=== PATIENT | male | born 1975 | race Caucasian/White ===

== ENCOUNTER 2023-05-01 06:27 | Outpatient (CLI) | payer OTHER, SELFPAY ==
--- NOTE | 2023-05-01 07:32 | W.ANESCHARGE ---
Anesthesia Charges Start Date/Time Anesthesia Start Date: 05/01/23 Anesthesia Start Time: 07:12 Stop Date/Time Anesthesia Stop Date: 05/01/23 Anesthesia Stop Time: 07:29
--- NOTE | 2023-05-01 11:49 | W.ANESCHARGE ---
Anesthesia Charges Start Date/Time Anesthesia Start Date: 05/01/23 Anesthesia Start Time: 07:12 Stop Date/Time Anesthesia Stop Date: 05/01/23 Anesthesia Stop Time: 07:29
== END 2023-05-01 06:28 | disposition home or self-care (01) ==
PROVIDERS: PCP Family Medicine; Visit Provider Internal Medicine Gastroenterology
DX: Z12.11 Encounter for screening for malignant neoplasm of colon (principal); K22.70 Barrett's esophagus without dysplasia; K44.9 Diaphragmatic hernia without obstruction or gangrene; K31.89 Other diseases of stomach and duodenum
CPT/HCPCS: 00731; 43239; 88305; J2704; J3010

== ENCOUNTER 2023-05-19 17:06 | Emergency (ER) | payer OTHER, SELFPAY ==
[2023-05-19 17:47] VITALS: BP 148/98; PULSE 65; RESP 18; TEMP 36.2; O2SAT 95; BMI 30.5
--- NOTE | 2023-05-19 18:21 | ED_ITS ---
HPI - General Adult General Date Seen: 05/19/23 Chief complaint: Ear/Nose/Throat Problem Stated complaint: ear pain possibly relating to tooth Time Seen by Provider: 05/19/23 17:50 Source: patient Mode of arrival: ambulatory Limitations: no limitations History of Present Illness HPI narrative: Patient is a 47-year-old male presenting to emergency department for right ear and tooth pain. He states the pain is been going for the past 2 days been getting worse. Says the pain starts in 1 of his right lower molars and seems to follow his jaw up to his ear. Denies any pain behind the ear. States he is due to get the tooth out on May 30. States pain is getting worse. Tylenol ibuprofen have not been helping. Denies fevers, chills, weakness, hearing issues, vision changes, lightheadedness, dizziness. No other concerns at this time Related Data Home Medications Medication Instructions Recorded Confirmed amlodipine 5 mg tablet 5 mg PO DAILY 05/19/23 05/19/23 atorvastatin 40 mg tablet 40 mg PO QPM cholesterol 05/19/23 05/19/23 hydrochlorothiazide 25 mg tablet 25 mg PO DAILY blood pressure 05/19/23 05/19/23 Allergies Allergy/AdvReac Type Severity Reaction Status Date / Time No Known Drug Allergies Allergy Verified 05/01/23 07:42 Review of Systems Status of ROS: Reports: 6 or more systems reviewed and unremarkable except as noted in History and below Exam Narrative: Exam Narrative: Const: Well-nourished, Well-developed, in mild distress Eyes: PERRL, no conjunctival injection, and symmetrical lids HENT: Atraumatic external nose and ears. Moist mucous membranes. Normal tympanic membranes on right. No mastoid tenderness, erythema and poor dentition seen right lower molar tooth 30 Neck: Symmetric, trachea midline, No thyromegaly. MSK:Extremities w/o deformity, Normal Active ROM Skin: Warm, Dry. No rashes or lesions. Neuro: Normal Muscle tone, No focal neurological deficits. Psych: Awake, Alert, & Oriented x3. Appropriate mood and affect. Const: Vital Signs, click to edit/add: Vital Signs - 24 hr 05/19/23 17:47 Temperature 97.1 F L Pulse Rate [Pulse Oximeter] 65 Respiratory Rate 18 Blood Pressure [Ri ght Upper Arm] 148/98 H Pulse Oximetry 95 Oxygen Delivery Me thod Room Air Course Vital Signs Vital signs: Initial Vital Signs Temperature 97.1 F L 05/19/23 17:47 Temperature Source Temporal Artery Scan 05/19/23 17:47 Pulse Rate 65 05/19/23 17:47 Respiratory Rate 18 05/19/23 17:47 Blood Pressure 148/98 H 05/19/23 17:47 Blood Pressure Mean 114 H 05/19/23 17:47 Pulse Oximetry 95 05/19/23 17:47 Oxygen Delivery Method Room Air 05/19/23 17:47 Vital Signs Temperature 97.1 F L 05/19/23 17:47 Pulse Rate 65 05/19/23 17:47 Respiratory Rate 18 05/19/23 17:47 Blood Pressure 148/98 H 05/19/23 17:47 Pulse Oximetry 95 05/19/23 17:47 Oxygen Delivery Method Room Air 05/19/23 17:47 Temperature 97.1 F L 05/19/23 17:47 Pulse Rate 65 05/19/23 17:47 Respiratory Rate 18 05/19/23 17:47 Blood Pressure 148/98 H 05/19/23 17:47 Pulse Oximetry 95 05/19/23 17:47 Oxygen Delivery Method Room Air 05/19/23 17:47 Medical Decision Making MDM Narrative Medical decision making narrative: Patient is a 47-year-old male presenting for right tooth pain. Says symptoms have been going on for past few days. Is post at the tooth removed. Does have dental caries and some inflammation and erythema around the tooth. He has no mastoid tenderness and does not appear to be any mastoiditis. It seems like the ear pain is referred from the tooth. He is otherwise doing well with normal vital signs. I will discharge him home with antibiotics and oxycodone sent through [facility]. He is agreeable to this plan. Discharge Plan Discharge Clinical Impression: Dental caries Patient Disposition: Home, Self-Care Condition: Stable Instructions: Tooth Extraction (DC) Additional Instructions: Take Tylenol and ibuprofen for pain. If that is not helping control the oxycodone. Of note this emergency department is unlikely to prescribe you another round of oxycodone for this pain so tried to make them last as long as he can. 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 Return to emergency department for new worsening symptoms Prescriptions: No Action atorvastatin 40 mg tablet 40 mg PO QPM amlodipine 5 mg tablet 5 mg PO DAILY hydrochlorothiazide 25 mg tablet 25 mg PO DAILY Follow Up/Referrals: Elliot Ureña MD [Primary Care Provider] - Stand Alone Forms: [employer] Info Instructions
== END 2023-05-19 18:34 | disposition home or self-care (01) ==
PROVIDERS: Emergency Provider Student in an Organized Health Care Education/Training Program; PCP Family Medicine
DX: K02.9 Dental caries, unspecified (principal)
CPT/HCPCS: 99282; 99283